=== PATIENT | male | born 1990 | race Two or more races ===

== ENCOUNTER 2020-09-09 06:24 | Emergency (ER) | payer MEDICAID ==
[~2020-09-09] VITALS: Ht 180.3 cm; Wt 101.2 kg
[~2020-09-09 06:24] MED LIST: BACTRIM DS TAB1 EAC1 ORAL; IBUPROFEN600 MG ORAL; NORCO 5-325 TA1 EACH ORAL; VIBRAMYCIN100 MG ORAL
[2020-09-09 06:30] VITALS: BP 128/84
--- NOTE | 2020-09-09 06:31 | NUR ---
ED Nurse Note: Patient walked into ED c/o laceration located on the palm of his land that occured about 6 hours ago, patient reports of playing around with an boiler water tester, reports of pain however unable to give number due to his hand being numb. will continue to monitor
--- NOTE | 2020-09-09 06:37 | Emergency Room Report ---
History of Present Illness General Chief Complaint: Laceration Source: Patient Present Illness HPI 30-year-old male here with left palm laceration. 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 Was able to stop the bleeding with pressure alone. Does not know when his last tetanus shot was. Denies focal numbness or weakness. Unaware of when his last tetanus shot was. Allergies: Coded Allergies: No Known Allergies (Unverified , 08/30/13) COVID-19 Screening Contact w/high risk pt: No Experienced COVID-19 symptoms?: No COVID-19 Testing performed WEB SEARCH EVALUATOR: No Nursing Documentation-[facility] Past Medical History: No Stated History Review of Systems All Other Systems: negative except mentioned in HPI Physical Exam Vital Signs Date Time Temp Pulse Resp B/P (MAP) Pulse Ox O2 Delivery O2 Flow Rate FiO2 09/09/20 06:26 98.1 89 18 128/84 (99) 98 Room Air Sp02 EP Interpretation: reviewed, normal General Appearance: no apparent distress, alert, non-toxic Head: normocephalic, atraumatic Eyes: bilateral eye normal inspection, bilateral eye PERRL ENT: hearing grossly normal, normal pharynx, no angioedema, normal voice Neck: full range of motion, supple/symm/no masses Respiratory: chest non-tender, lungs clear, normal breath sounds, speaking full sentences Cardiovascular #1: regular rate, rhythm, no edema Cardiovascular #2: 2+ carotid (R), 2+ carotid (L), 2+ radial (R), 2+ radial (L), 2+ dorsalis pedis (R), 2+ dorsalis pedis (L) Gastrointestinal: normal bowel sounds, non tender, soft, non-distended, no guarding, no rebound Rectal: deferred Genitourinary: normal inspection, no CVA tenderness Musculoskeletal: back normal, normal range of motion, calf tenderness, gait/station normal, other - 1 cm laceration left palm. Normal range of motion. Neurovascularly intact. No obvious foreign bodies Neurologic: alert, motor strength/tone normal, oriented x3, sensory intact, responsive, speech normal Psychiatric: judgement/insight normal, memory normal, mood/affect normal, no suicidal/homicidal ideation Reflexes: 3+ bicep (R), 3+ bicep (L), 3+ tricep (R), 3+ tricep (L), 3+ knee (R), 3+ knee (L) Lymphatic: no adenopathy Procedures Laceration/Wound Repair Laceration/Wound Repair : Consent: Verbal Wound Location: other - Left palm Wound's Depth, Shape: superficial Wound Length (cm): 1 Wound Explored: clean Betadine Prep?: Yes Anesthesia: 1% Lidocaine Wound Repaired With: sutures Suture Size/Type: 5:0 Number of Sutures: 2 Sterile Dressing Applied?: Yes Splint Applied?: No Patient Tolerated: Well Complications: None Medical Decision Making Diagnostic Impression: Primary Impression: Laceration ER Course X-ray left hand: No foreign bodies. Old appearing left fourth digit proximal interphalangeal joint fracture 30-year-old male here with left palm laceration. Laceration was repaired as described above. Patient tolerated procedure well. X-ray left hand did not reveal any foreign bodies. Patient was requesting absorbable suture be used because "I do not want to have to come back." Absorbable 5-0 suture was used. Patient was told to return with any wound evisceration or signs of infection. I informed the patient of an old appearing fracture in his left ring finger. He said "yeah I hurt it a long time ago." Patient had normal range of motion and was neurovascularly intact. Tetanus was updated in the emergency department. He expressed understanding and was discharged. Last Vital Signs Date Time Temp Pulse Resp B/P (MAP) Pulse Ox O2 Delivery O2 Flow Rate FiO2 09/09/20 06:30 98.1 96 18 128/84 98 Room Air Kelechi Pandey M.D. Sep 09, 2020 06:37
[2020-09-09] MEDS ORDERED: Tetanus/Diptheria/Pertussis IM ONE (06:45)
--- NOTE | 2020-09-09 06:50 | NUR ---
ED Nurse Note: irrigated patient's lac located on palm, lac is about half an inch in length.
[2020-09-09] MEDS ORDERED: Bacitracin Oint UD TOPIC ONE (07:45)
--- NOTE | 2020-09-09 07:56 | NUR ---
pt given tdap vaccine. pt L hand sutured by md patel. applied bacitracin ointment per md order. wrapped with guaze, secured. pt given discharge instructions.
--- NOTE | 2020-09-09 07:57 | NUR ---
ER DISCHARGE NOTE: Patient is cleared to be discharged per ERMD, pt is aox4, on room air, with stable vital signs. pt was given dc instructions, pt was able to verbalize understanding, pt id band removed. pt is able to ambulate with steady gait. pt took all belongings.
[2020-09-09 07:58] VITALS: BP 141/69
--- NOTE | 2020-09-09 13:06 | Diagnostic Imaging Report ---
EXAM: X-RAY XRAY Hand Complete L CLINICAL HISTORY: Laceration and pain at the palmar aspect of the left hand. Evaluate for foreign body. COMPARISON: None FINDINGS: Total of 4 views of the left hand were obtained. Old fracture deformity and secondary arthritis of the fourth PIP joint noted. The rest of the bony appendages are intact. No acute fracture, bony lesion or erosion. Joint spaces are unremarkable. Soft tissue appears normal. Specifically there is no radiopaque foreign body at the palmar aspect of the hand. IMPRESSION: NO RADIOPAQUE FOREIGN BODY SEEN. OLD FRACTURE DEFORMITY AND SECONDARY OSTEOARTHRITIS OF THE FOURTH PIP JOINT.
== END 2020-09-09 07:59 | disposition home or self-care (01) ==
LOC: EMR 06:42
DX: S61.412A Laceration without foreign body of left hand, initial encounter (principal); W25.XXXA Contact with sharp glass, initial encounter; Y93.89 Activity, other specified; Y92.9 Unspecified place or not applicable; Z87.81 Personal history of (healed) traumatic fracture
CPT/HCPCS: 12001; 73130; 90471; 90715; Z7502; 99283